=== PATIENT | male | born 1955 | race Caucasian/White ===

== ENCOUNTER 2018-09-26 15:42 | Inpatient (IN) ==
[2018-09-26 17:54] LABS: Basophils # 0.1 K/mcL (0.0-0.2); Basophils % 0.6 %; Eosinophils # 0.2 K/mcL (0.0-0.6); Eosinophils % 2.7 %; Hematocrit 45.8 % (37.5-50.1); Hemoglobin 15.2 g/dL (12.9-16.9); Immature Granulocytes % 0.3 % (0-4); Lymphocytes # 2.3 K/mcL (0.6-4.6); Lymphocytes % 26.2 %; Mean Corpuscular HGB Conc 33.2 g/dL (31.6-35.5); Mean Corpuscular Hemoglobin 29.7 pg (28.0-33.3); Mean Corpuscular Volume 89.6 fL (83.0-100.0); Monocytes % 11.4 %; Neutrophils # 5.1 K/mcL (1.6-8.9); Platelet Count 307 K/mcL (140-400); Red Blood Count 5.11 M/mcL (4.19-5.50); Red Cell Distribution Width 13.4 % (11.5-14.5); Segmented Neutrophils % 58.8 %
[2018-09-26 18:35] LABS: BUN/Creatinine Ratio 22 (6-26); Blood Urea Nitrogen 21 mg/dL (8-23); Calcium 9.2 mg/dL (8.6-10.3); Carbon Dioxide 22 mEq/L (23-29); Chloride 105 mEq/L (98-107); Glucose 98 mg/dL (70-105); Osmolality,Calculated 291 (280-300); Potassium 3.9 mEq/L (3.5-5.1); Sodium 139 mEq/L (136-145); eGFR For Non-African Americans > 60 (> 60)
--- NOTE | 2018-09-26 19:05 | Emergency Department Note ---
Disposition Clinical Impression: DVT (deep venous thrombosis) Qualifiers: DVT location: lower extremity Affected thrombotic vein of extremity: iliac Chronicity: acute Laterality: right Qualified Code(s): I82.421 - Acute embolism and thrombosis of right iliac vein Disposition: Admitted As Inpatient Condition: Good Time of Disposition: 20:20 General Adult HPI - General Chief complaint: ED Recheck/Abnormal Lab/Rx Stated complaint: Poss. DVT Time Seen by Provider: 09/26/18 18:32 Source: patient Limitations: no limitations Nursing Notes Reviewed: Yes Vital Signs Reviewed: Yes - History of Present Illness HPI Narrative: 63-year-old male presents with concern for DVT. Pt arrives from cardiovascular lab after a RLE DVT duplex study. Patient reports that he had some right lower extremity pain, he had been seen by his primary care provider approximately 3 days ago and was referred for DVT. Reportedly patient's primary care provider was contacted after this test and had advised to come to the emergency department. Patient does mention a history of DVT in the past in the past 10 years. Discussed with him, he mentions cause of this DVT was a "factor" this is a. Patient does mention that he has lower leg swelling, but he describes this as bilateral, and is currently taking Lasix for this, and tells me they just increased this. He describes being evaluated for this in the past. He denies any history of CHF kidney disease or liver disease. Patient reports that his medical translator had discontinued his anticoagulant use ago. Patient mentions his leg pain had improved approximate 2 days ago. Patient denies any chest pain, shortness of breath, hemoptysis, cough, syncope, fever, recent illness Pain Scale: 0 - Related Data Home Medications Medication Instructions Recorded Confirmed Losartan Potassium [Cozaar] 50 mg PO DAILY 09/26/18 09/26/18 Potassium Chloride [Klor-Con 10] 10 meq PO DAILY 09/26/18 09/26/18 RX: Allopurinol [Zyloprim 100 MG] 200 mg PO DAILY 09/26/18 09/26/18 RX: Aspirin 325 mg PO DAILY 09/26/18 09/26/18 RX: Furosemide [Lasix] 40 mg PO DAILY 09/26/18 09/26/18 RX: Simvastatin [Zocor] 40 mg PO QPM 09/26/18 09/26/18 RX: Sotalol [Betapace] 80 mg PO BID 09/26/18 09/26/18 Allergies Allergy/AdvReac Type Severity Reaction Status Date / Time No Known Allergies Allergy Verified 09/26/18 15:54 All systems ED: reviewed and negative except as stated. Review of Systems: As Per HPI Constitutional: Denies: fever, chills Eyes: Denies: eye pain ENT ED: Denies: throat pain Cardiovascular: Denies: chest pain, palpitations Respiratory: Denies: dyspnea Gastrointestinal: Denies: abdominal pain Genitourinary: Denies: dysuria Musculoskeletal: Denies: back pain Neurological: Denies: headache Endocrine: Denies: fatigue Hematological/Lymphatic: Denies: easy bleeding Past Medical History - Past Medical History Medical history: Reports: hyperlipidemia, hypertension, myocardial infarction Psychiatric history: Reports: no psych history - Social History Smoking Status: Never smoker Smokeless Tobacco Status: No Alcohol use: Reports: none Drug use: Reports: none Physical Exam - General Limitations: no limitations General appearance: alert, in no apparent distress - Head Head exam: atraumatic, normocephalic - Eye Eye exam: Present: EOMI. Absent: conjunctival injection - ENT ENT exam: normal oropharynx - Neck Neck exam: Present: normal inspection, full ROM. Absent: lymphadenopathy - Chest Chest inspection: Present: normal inspection, symmetric chest wall rise - Respiratory Respiratory exam: Present: normal lung sounds bilaterally. Absent: respiratory distress - Cardiovascular Cardiovascular exam: Present: regular rate, normal rhythm - Abdominal Exam Abdominal exam: Present: soft, Non-Tender - Extremities Exam Extremities exam: Present: full ROM, normal capillary refill - Expanded Lower Extremity Exam Hip/Pelvis exam: Present: full ROM Upper leg exam: Present: full ROM Knee exam: Present: full ROM. Absent: swelling Lower leg exam: Present: full ROM. Absent: tenderness, swelling, Homans' sign Ankle exam: Present: normal inspection, full ROM. Absent: tenderness, swelling Foot/toe exam: Present: normal inspection, full ROM. Absent: tenderness, swelling Neurovascular/Tendon exam: Present: normal capillary refill. Absent: pulse deficit, motor deficit, sensory deficit - Back Exam Back exam: Present: normal inspection, full ROM - Neurological Exam Neurological exam: Present: alert - Psychiatric Psychiatric exam: Present: normal affect, normal mood - Skin Skin exam: Present: warm, dry, intact, normal color. Absent: rash, cyanosis, diaphoresis Course Course Narrative: Pt has provided printout of the preliminary report of his RLE duplex. Vitals are wnl. Pt on exam. No unilateral leg swelling. No tenderness to right lower extremity. Results of this exam so partial occlusion that appears to be Q in the right distal iliac, and the right posterior tibial, and the right or lesser saphenous. Discussed with Dr. Rupali Ruiz who reviewed report, discussed with a patient and advised for admission. - Reevaluation(s) Reevaluation #1: Patient remained stable. lab Work unremarkable. Dr. Ruiz had ordered heparin. Patient was discussed with and accepted by hospitalist Dr. Posada Time: 20:19 Vital Signs Temperature 97.8 F 09/26/18 15:51 Pulse Rate 74 09/26/18 15:51 Respiratory Rate 18 09/26/18 15:51 Blood Pressure 127/82 09/26/18 15:51 O2 Sat by Pulse Oximetry 94 09/26/18 15:51 Temperature 97.5 F L 09/26/18 21:30 Pulse Rate 64 09/26/18 21:30 Respiratory Rate 16 09/26/18 21:30 Blood Pressure 157/91 09/26/18 21:30 O2 Sat by Pulse Oximetry 96 09/26/18 21:30 Oxygen Delivery Oxygen Delivery Room Air Medical Decision Making - [facility] Narrative Medical decision making narrative: Laboratory Tests 09/26/18 09/26/18 09/26/18 17:00 17:00 17:00 WBC 8.6 RBC 5.11 Hgb 15.2 Hct 45.8 MCV 89.6 MCH 29.7 MCHC 33.2 RDW 13.4 Plt Count 307 MPV 10.0 Immature Gran % 0.3 Seg Neutrophils % 58.8 Lymphocytes % 26.2 Monocytes % 11.4 Eosinophils % 2.7 Basophils % 0.6 Neutrophils # 5.1 Lymphocytes # 2.3 Monocytes # 1.0 Eosinophils # 0.2 Basophils # 0.1 PT 10.3 INR 0.9 APTT 34.2 Sodium 139 Potassium 3.9 Chloride 105 Carbon Dioxide 22 L BUN 21 Creatinine 0.96 Est GFR ( Amer) > 60 Est GFR (Non-Af Amer) > 60 BUN/Creatinine Ratio 22 Glucose 98 Calculated Osmolality 291 Calcium 9.2 - Lab Data Lab results reviewed: Yes I reviewed the patient's lab results. Result diagrams: 09/26/18 17:00 09/26/18 17:00 Lab Results 09/26/18 09/26/18 09/26/18 Range/Units 17:00 17:00 17:00 WBC 8.6 (4.3-11.1) K/mcL RBC 5.11 (4.19-5.50) M/mcL Hgb 15.2 (12.9-16.9) g/dL Hct 45.8 (37.5-50.1) % MCV 89.6 (83.0-100.0) fL MCH 29.7 (28.0-33.3) pg MCHC 33.2 (31.6-35.5) g/dL RDW 13.4 (11.5-14.5) % Plt Count 307 (140-400) K/mcL MPV 10.0 (9.4-12.4) fL Immature Gran % 0.3 (0-4) % Seg Neutrophils % 58.8 % Lymphocytes % 26.2 % Monocytes % 11.4 % Eosinophils % 2.7 % Basophils % 0.6 % Neutrophils # 5.1 (1.6-8.9) K/mcL Lymphocytes # 2.3 (0.6-4.6) K/mcL Monocytes # 1.0 (0.0-1.3) K/mcL Eosinophils # 0.2 (0.0-0.6) K/mcL Basophils # 0.1 (0.0-0.2) K/mcL PT 10.3 (9.4-12.1) Seconds INR 0.9 APTT 34.2 (26.0-36.0) Seconds Sodium 139 (136-145) mEq/L Potassium 3.9 (3.5-5.1) mEq/L Chloride 105 (98-107) mEq/L Carbon Dioxide 22 L (23-29) mEq/L BUN 21 (8-23) mg/dL Creatinine 0.96 (0.70-1.30) mg/dL Est GFR ( Amer) > 60 (> 60) Est GFR (Non-Af Amer) > 60 (> 60) BUN/Creatinine Ratio 22 (6-26) Glucose 98 (70-105) mg/dL Calculated Osmolality 291 (280-300) Calcium 9.2 (8.6-10.3) mg/dL
[2018-09-26 19:18] LABS: INR 0.9; Prothrombin Time 10.3 Seconds (9.4-12.1)
[2018-09-26 19:21] LABS: Activated Partial Thrombo Time 34.2 Seconds (26.0-36.0)
[2018-09-26] MEDS ORDERED: *HR* Heparin 5,000 UNIT/ML VIAL IVP ONE (19:29)
[2018-09-26] MEDS ORDERED: *HR* Heparin 5,000 UNIT/ML VIAL IVP PRN ×2 (19:29)
--- NOTE | 2018-09-26 19:32 | Emergency Department Note ---
Disposition Clinical Impression: DVT (deep venous thrombosis) Qualifiers: DVT location: lower extremity Affected thrombotic vein of extremity: iliac Chronicity: acute Laterality: right Qualified Code(s): I82.421 - Acute embolism and thrombosis of right iliac vein Disposition: Admitted As Inpatient Condition: Good Forms: ED Satisfaction Letter General Adult HPI - General Chief complaint: ED Recheck/Abnormal Lab/Rx Stated complaint: Poss. DVT Time Seen by Provider: 09/26/18 18:32 Source: patient Limitations: no limitations - History of Present Illness Pain Scale: 0 - Related Data Allergies Allergy/AdvReac Type Severity Reaction Status Date / Time No Known Allergies Allergy Verified 09/26/18 15:54 Constitutional: Denies: fever, chills Eyes: Denies: eye pain ENT ED: Denies: throat pain Cardiovascular: Denies: chest pain, palpitations Respiratory: Denies: dyspnea Gastrointestinal: Denies: abdominal pain Genitourinary: Denies: dysuria Musculoskeletal: Denies: back pain Neurological: Denies: headache Endocrine: Denies: fatigue Hematological/Lymphatic: Denies: easy bleeding Past Medical History - Past Medical History Medical history: Reports: hyperlipidemia, hypertension, myocardial infarction Psychiatric history: Reports: no psych history - Social History Smoking Status: Never smoker Smokeless Tobacco Status: No Alcohol use: Reports: none Drug use: Reports: none Physical Exam - General Limitations: no limitations General appearance: alert, in no apparent distress Course Vital Signs Temperature 97.8 F 09/26/18 15:51 Pulse Rate 74 09/26/18 15:51 Respiratory Rate 18 09/26/18 15:51 Blood Pressure 127/82 09/26/18 15:51 O2 Sat by Pulse Oximetry 94 09/26/18 15:51 Temperature 97.8 F 09/26/18 15:51 Pulse Rate 74 09/26/18 15:51 Respiratory Rate 18 09/26/18 15:51 Blood Pressure 127/82 09/26/18 15:51 O2 Sat by Pulse Oximetry 94 09/26/18 15:51 Oxygen Delivery Oxygen Delivery Room Air Medical Decision Making - Lab Data Result diagrams: 09/26/18 17:00 09/26/18 17:00 Lab Results 09/26/18 09/26/18 09/26/18 Range/Units 17:00 17:00 17:00 WBC 8.6 (4.3-11.1) K/mcL RBC 5.11 (4.19-5.50) M/mcL Hgb 15.2 (12.9-16.9) g/dL Hct 45.8 (37.5-50.1) % MCV 89.6 (83.0-100.0) fL MCH 29.7 (28.0-33.3) pg MCHC 33.2 (31.6-35.5) g/dL RDW 13.4 (11.5-14.5) % Plt Count 307 (140-400) K/mcL MPV 10.0 (9.4-12.4) fL Immature Gran % 0.3 (0-4) % Seg Neutrophils % 58.8 % Lymphocytes % 26.2 % Monocytes % 11.4 % Eosinophils % 2.7 % Basophils % 0.6 % Neutrophils # 5.1 (1.6-8.9) K/mcL Lymphocytes # 2.3 (0.6-4.6) K/mcL Monocytes # 1.0 (0.0-1.3) K/mcL Eosinophils # 0.2 (0.0-0.6) K/mcL Basophils # 0.1 (0.0-0.2) K/mcL PT 10.3 (9.4-12.1) Seconds INR 0.9 APTT 34.2 (26.0-36.0) Seconds Sodium 139 (136-145) mEq/L Potassium 3.9 (3.5-5.1) mEq/L Chloride 105 (98-107) mEq/L Carbon Dioxide 22 L (23-29) mEq/L BUN 21 (8-23) mg/dL Creatinine 0.96 (0.70-1.30) mg/dL Est GFR ( Amer) > 60 (> 60) Est GFR (Non-Af Amer) > 60 (> 60) BUN/Creatinine Ratio 22 (6-26) Glucose 98 (70-105) mg/dL Calculated Osmolality 291 (280-300) Calcium 9.2 (8.6-10.3) mg/dL Attestation Statement - Attestation Attestation: I examined this patient and my medical decision-making was reviewed with the PA. I agree with the documented findings, disposition and treatment plan as described except to the extent set forth below. 63 year old male presents to the ED with compaits of new found acute thrombosis in the right DVT in the distal iliac and sapphenous and popliteal. He has a hsitroy of DVTs and was recently taken off his coumadin therapy and has been experincing icnreased leg pain. Patinet will require admission to the hospital and heparin therapy.
[2018-09-26] MEDS: Heparin 25,000 UNIT/500 ML D5W 25,000 UNIT/500 ML BAG IVC SCH (19:50)
--- NOTE | 2018-09-26 21:35 | Internal Med History&Physical ---
<Abbey Beverly - Last Filed: 09/27/18 00:50> Date of Encounter: 09/27/18 Time of Encounter: 21:30 Internal Medicine - H&P: HPI Chief complaint: DVT right leg Admitted From: Home Plans for Post Hospital Care: Home History of present illness: Mr. Alvarado is a 63 year old male with past medical history of DVT, HTN, HLD, CA 2, pacemaker/defibrillator, gout presents to ED with concern for right lower extremity DVT. Patient saw his primary care provider about 3 days ago for right leg pain and the provider ordered a right lower extremity venous duplex. His right leg pain started 2 weeks ago and is located on the medial aspect of his calf; the area is approximately 2.5 cm in diameter and describes the pain as bruise-like. The pain does not radiate, it is made worse by bearing weight. He denies erythema or warmth of the right leg compared to the left. Denies associated chest pain, palpitations, irregular heartbeat, pleuritic chest pain, cough, dyspnea, syncope, or vision changes. No previous trauma or surgery to RLE, no prolonged periods of immobilization, no recent travel. Right lower extremity venous duplex performed at OSH revealed thrombus that included distal iliac, saphenous, and popliteal veins. Patient was reportedly contacted regarding his results and he was advised to go to the emergency department. Patient admits to previous DVT in the right leg with pulmonary embolism which occurred 6-7 years ago, he was treated at [facility] and discharged home on Coumadin. Patient thinks he was on Coumadin for a couple months, but is not certain. States his lumber inspector told him he no longer needed the Coumadin and instead could take a full dose of aspirin daily. Denies personal history of TIA/CVA, denies h/o cancer; family hx significant for clotting disorder due to "factor k" in patient's mother and sister. In the emergency department patient was found to be afebrile, heart rate 64, respiratory rate 16, blood pressure 157/91, SPO2 96% on room air. Labwork showed CBC, BMP, and PT/INR within normal limits. Per ED reports, patient had a printed copy of the preliminary RLE duplex results that showed acute thrombosis in distal iliac, sapphenous, and popliteal veins--his family took the report with them when they left for the night. Past Med Surg Social Fam HX - Past Medical History Medical history: hyperlipidemia, hypertension, myocardial infarction Psychiatric history: no psych history - Social History Smoking Status: Never smoker Smokeless Tobacco Status: No Alcohol use: none Drug use: none - Family History Father Living Status: Hx Family Cardiac Disorders: Yes Internal Medicine - H&P: Meds Allopurinol [Zyloprim 100 MG] 200 mg PO DAILY 09/26/18 [History] Aspirin 325 mg PO DAILY 09/26/18 [History] Furosemide [Lasix] 40 mg PO DAILY 09/26/18 [History] Losartan Potassium [Cozaar] 50 mg PO DAILY 09/26/18 [History] Potassium Chloride [Klor-Con 10] 10 meq PO DAILY 09/26/18 [History] Simvastatin [Zocor] 40 mg PO QPM 09/26/18 [History] Sotalol [Betapace] 80 mg PO BID 09/26/18 [History] Allergy/AdvReac Type Severity Reaction Status Date / Time No Known Allergies Allergy Verified 09/26/18 15:54 All Systems PM: A 10-system review of systems was performed and is negative for pertinent findings except as documented above in the HPI. - Constitutional Constitutional: no chills, no fever(s) - EENT Eyes: no change in vision - Cardiovascular Cardiovascular ROS IM: dyspnea on exertion (has improved since PCP increased furosemide dose), no chest pain, no diaphoresis, no irregular heart rhythm, no palpitations, no syncope - Respiratory Respiratory: no cough, no pain on inspiration, no pain with cough - Gastrointestinal Gastrointestinal: bloating (has improved since PCP increased furosemide dose), no abdominal pain, no constipation, no diarrhea, no nausea, no vomiting - Musculoskeletal Musculoskeletal ROS IM: other (RLE pain) Additional comments: denies erythema or warm of RLE compared to LLE - Integumentary Integumentary IM: no unusual bruising - Constitutional Vitals: Temp Pulse Resp BP Pulse Ox 97.8 F 68 16 126/74 98 09/26/18 15:51 09/26/18 20:17 09/26/18 20:17 09/26/18 20:17 09/26/18 20:17 Exam: General: vital signs noted, No acute distress, resting comfortably in bed HEENT: head normocephalic/atraumatic, EOMI, PERRL, sclera anicteric, moist mucus membranes Neck: Supple, demonstrates good ROM Cardio: RRR, no murmurs, +S1/S2 Pulm: CTAB, no wheezing, rhonchi, rales. Normal respiratory effort. Abdomen: soft, nontender, active bowel sounds; no rebound, rigidity, guarding, distention Extremities: appears RLE > LLE circumference, no cyanosis, no clubbing, pedal pu lses +2/4 bilaterally, no pitting edema Neuro: AAOx3, no focal deficit, no speech deficit, CN II-XII grossly intact, moves all extremities spontaneously Skin: clean, dry, intact, no visible rashes or bruises Psych: Appropriate mood and affect. Answers questions appropriately. Cooperative with exam Internal Med - H&P Results - Labs CBC & Chem 7: 09/26/18 17:00 09/26/18 17:00 Labs: Short CBC 09/26/18 Range/Units 17:00 WBC 8.6 (4.3-11.1) K/mcL Hgb 15.2 (12.9-16.9) g/dL Hct 45.8 (37.5-50.1) % Plt Count 307 (140-400) K/mcL Neutrophils # 5.1 (1.6-8.9) K/mcL BMP 09/26/18 17:00 Sodium 139 Potassium 3.9 Chloride 105 Carbon Dioxide 22 L BUN 21 Creatinine 0.96 Glucose 98 Calcium 9.2 - Assessment and plan (1) Deep vein thrombosis (DVT) of right lower extremity Current Visit: Yes Status: Acute Assessment and plan: Unprovoked, recurrent First occurrence (RLE DVT and PE) was 6-7 years ago, treated at [facility] and discharged home on coumadin Preliminary RLE duplex from OSH reported to show acute thrombosis in distal iliac, sapphenous, and popliteal veins Clinical exam not concerning for PE at this time (no tachycardia, tachypnea, decreased oxygen saturation, or hemodynamic instability), but continue to monitor Reports family history of clotting disorder of "factor k" Denies previous or current h/o cancer Heparin bolus and drip gtt started in ED Continue heparin gtt per protocol, monitor with heparin anti-Xa Request records from [facility] f/u with hematology--anticoagulation agent and duration recommendations, hypercoagulability work-up Suspect patient will require long-term, possibly lifetime, anticoagulation Monitor for signs of active bleeding Cardiac and pulse ox monitoring Qualifiers: Affected thrombotic vein of extremity: iliac Chronicity: acute Qualified Code(s): I82.421 - Acute embolism and thrombosis of right iliac vein (2) Hypertension Current Visit: Yes Status: Acute Assessment and plan: Continue home losartan, furosemide, and potassium chloride tablets Qualifiers: Hypertension type: unspecified Qualified Code(s): I10 - Essential (primary) hypertension (3) Hyperlipidemia Current Visit: Yes Status: Acute Assessment and plan: Continue home simvastatin Qualifiers: Hyperlipidemia type: unspecified Qualified Code(s): E78.5 - Hyperlipidemia, unspecified (4) CAD (coronary artery disease) Current Visit: Yes Status: Chronic Assessment and plan: Reports CA x2, most recent was early Qualifiers: Coronary Disease-Associated Artery/Lesion type: [place] artery [place] vs. transplanted heart: [place] heart Associated angina: with unspecified angina Qualified Code(s): I25.119 - Atherosclerotic heart disease of [place] coronary artery with unspecified angina pectoris (5) Presence of combination internal cardiac defibrillator (ICD) and pacemaker Current Visit: Yes Status: Acute Assessment and plan: Current pacemaker/defibrillator placed 2-3 years ago This is patient's second pacemaker/defibrillator--implanted for what sounds like symptomatic bradycardia? Requesting records from [facility] on telemetry (6) Former tobacco use Current Visit: Yes Status: Acute Assessment and plan: Quit in 1991 (7) DVT prophylaxis Current Visit: Yes Status: Acute Assessment and plan: Currently on heparin gtt, will continue - Time Spent With Patient Total time spent is greater than 50% in coordination of care (as documented) at patient's floor/unit and/or counseling patient: <Naseem Posada - Last Filed: 09/27/18 03:07> Date of Encounter: 09/27/18 Time of Encounter: 01:35 - Cardiovascular Cardiovascular ROS IM: dyspnea on exertion, no chest pain, no dyspnea - Respiratory Respiratory: no cough, no hemoptysis - Genitourinary Genitourinary ROS male: no dysuria, no flank pain - Constitutional Vitals: Temp Pulse Resp BP Pulse Ox 97.8 F 65 16 125/77 95 09/27/18 00:03 09/27/18 00:03 09/27/18 00:03 09/27/18 00:03 09/27/18 00:03 General appearance: Present: cooperative, A&O X 3, pleasant, no acute distress - Head Head exam: Present: normal inspection - Eye Eye exam: Present: PERRL. Absent: scleral icterus - ENT ENT exam: Present: mucous membranes dry, normal exam - Neck Neck exam general surgery: Present: full ROM, supple. Absent: tenderness, nuc nikia rigidity - Respiratory Respiratory exam: Present: CTAB. Absent: chest wall tenderness, rales, rhonchi, wheezes - Cardiovascular Cardiovascular exam: Present: RRR, +S1, +S2. Absent: diastolic murmur, systolic murmur - GI/Abdominal GI/Abdominal exam: Present: normal bowel sounds, soft. Absent: hepatomegaly, mass, splenomegaly, tenderness - Extremities Exam Extremities exam: Present: calf tenderness, normal capillary refill, tenderness (right thigh/calf), warm, radial pulses palpable and symmetrical. Absent: joint swelling, pedal edema - Back Exam Back exam: Absent: CVA tenderness (L), CVA tenderness (R) - Neurological Exam Neurological exam: Present: alert, CN II-XII intact, oriented X3, strengths equal and symetr throughout - Skin Skin exam: Present: dry, intact, warm Internal Med - H&P Results - Labs CBC & Chem 7: 09/26/18 17:00 09/26/18 17:00 Labs: Short CBC 09/26/18 Range/Units 17:00 WBC 8.6 (4.3-11.1) K/mcL Hgb 15.2 (12.9-16.9) g/dL Hct 45.8 (37.5-50.1) % Plt Count 307 (140-400) K/mcL Neutrophils # 5.1 (1.6-8.9) K/mcL BMP 09/26/18 17:00 Sodium 139 Potassium 3.9 Chloride 105 Carbon Dioxide 22 L BUN 21 Creatinine 0.96 Glucose 98 Calcium 9.2 - Time Spent With Patient Total time spent is greater than 50% in coordination of care (as documented) at patient's floor/unit and/or counseling patient: - Attending Attestation I discussed the patient [place], past medical history, review of systems, lab data, and exam findings with Dr. Devries. I then saw and examined and assessed patient independently as well. Patient reports prior history of DVT and PE (wh ich were unprovoked) roughly 6 or 7 years ago. He now has his third episode of VTE which was unprovoked. Given that history, I recommend long-term and possibly lifelong anticoagulation. Upon my assessment of the patient, he states he had a hypercoagulable workup done several years ago by hematology at [facility]. He does not recall the type of thrombophilia he suffers from. Given the proximal nature of his DVT and high risk for embolization, I agree with admission and heparin anti-coagulation for the time being. He will likely convert to oral anti-coagulation within 24 hours and possibly discharge home in 1 to 2 days. I do recommend outpatient follow-up with hematology for guidance regarding anticoagulation choice, duration, and further hypercoagulable testing if necessary. Furthermore, depending upon his hypercoagulable state, his children may need to be tested as well. I advised patient of my recommendations and he voiced understanding. Other than my comments above and noted exam findings, I agree with Dr. Devries's assessment and plan.
[2018-09-26] MEDS ORDERED: Naloxone 0.4 MG/ML INJ IVP PRN (21:37)
[2018-09-27 00:17] LABS: Heparin anti-factor XA UFH 1.59 IU/mL (0.30-0.70)
[2018-09-27 07:10] LABS: Basophils % 0.5 %; Eosinophils # 0.2 K/mcL (0.0-0.6); Eosinophils % 2.6 %; Hematocrit 42.3 % (37.5-50.1); Hemoglobin 13.9 g/dL (12.9-16.9); Immature Granulocytes % 0.4 % (0-4); Lymphocytes # 2.5 K/mcL (0.6-4.6); Lymphocytes % 30.1 %; Mean Corpuscular HGB Conc 32.9 g/dL (31.6-35.5); Mean Corpuscular Hemoglobin 29.8 pg (28.0-33.3); Mean Corpuscular Volume 90.8 fL (83.0-100.0); Mean Platelet Volume 10.2 fL (9.4-12.4); Monocytes # 0.8 K/mcL (0.0-1.3); Monocytes % 9.9 %; Neutrophils # 4.6 K/mcL (1.6-8.9); Platelet Count 274 K/mcL (140-400); Red Blood Count 4.66 M/mcL (4.19-5.50); Red Cell Distribution Width 13.4 % (11.5-14.5); Segmented Neutrophils % 56.5 %
[2018-09-27 07:29] LABS: Alanine Aminotransferase 18 Units/L (7-52); Albumin 3.8 g/dL (3.5-5.7); Albumin/Globulin Ratio 1.5 (1.1-2.2); Alkaline Phosphatase 102 Units/L (34-104); Aspartate Amino Transferase 18 Units/L (13-39); BUN/Creatinine Ratio 22 (6-26); Bilirubin,Total 0.3 mg/dL (0.3-1.0); Blood Urea Nitrogen 21 mg/dL (8-23); Calcium 8.8 mg/dL (8.6-10.3); Carbon Dioxide 24 mEq/L (23-29); Chloride 105 mEq/L (98-107); Globulin 2.5 g/dL (2.4-3.5); Glucose 96 mg/dL (70-105); Osmolality,Calculated 289 (280-300); Sodium 138 mEq/L (136-145); Total Protein 6.3 g/dL (6.4-8.9); eGFR For Non-African Americans > 60 (> 60)
[2018-09-27] MEDS: Furosemide 40 MG TABLET PO SCH (08:23)
[2018-09-27] MEDS: Heparin 25,000 UNIT/500 ML D5W 25,000 UNIT/500 ML BAG IVC SCH ×2 (10:10→23:25)
[2018-09-27] MEDS ORDERED: Acetaminophen 325 MG TABLET PO PRN (15:27)
--- NOTE | 2018-09-27 17:34 | Internal Med Progress Note ---
Hospitalist Progress Note - Encounter Date of Encounter: 09/27/18 Time of Encounter: 04:00 - Exam Vitals: Temp Pulse Resp BP Pulse Ox 98.0 F 65 16 112/78 92 09/27/18 16:23 09/27/18 16:23 09/27/18 16:23 09/27/18 16:23 09/27/18 16:23 Exam: General: vital signs noted, No acute distress, resting comfortably in bed ?Gen: Alert, awake, Oriented to time,place and person Chest: Diminished breath sounds B/L, No wheezing, No crackles, No rales Heart: S1S2+ RRR No murmurs Abd: Soft, NT, BS +, No organomegaly Ext: No edema, pulses are palpable, No calf tenderness Neuro : Benign findings Skin: No rash. - Assessment and Plan (1) Deep vein thrombosis (DVT) of right lower extremity Current Visit: Yes Status: Acute - Time Spent with Patient Total time spent is greater than 50% in coordination of care (as documented) at patient's floor/unit and/or counseling patient: (1) Deep vein thrombosis (DVT) of right lower extremity Current Visit: Yes Status: Acute Assessment and plan: Unprovoked, recurrent First occurrence (RLE DVT and PE) was 6-7 years ago, treated at [facility] and discharged home on coumadin Preliminary RLE duplex from OSH reported to show acute thrombosis in distal eron c, sapphenous, and popliteal veins Clinical exam not concerning for PE at this time (no tachycardia, tachypnea, decreased oxygen saturation, or hemodynamic instability), but continue to monitor Reports family history of clotting disorder of "factor k" Denies previous or current h/o cancer Heparin bolus and drip gtt started in ED Continue heparin gtt per protocol, monitor with heparin anti-Xa Request records from [facility] f/u with hematology--anticoagulation agent and duration recommen dations, hypercoagulability work-up Suspect patient will require long-term, possibly lifetime, anticoagulation Monitor for signs of active bleeding Cardiac and pulse ox monitoring 25 - 35 minutes Plan of Care Discussed with: patient Internal Medicine: Result - Labs CBC & Chem 7: 09/27/18 06:41 09/27/18 06:41 Labs: Short CBC 09/26/18 09/27/18 Range/Units 17:00 06:41 WBC 8.6 8.2 (4.3-11.1) K/mcL Hgb 15.2 13.9 (12.9-16.9) g/dL Hct 45.8 42.3 (37.5-50.1) % Plt Count 307 274 (140-400) K/mcL Neutrophils # 5.1 4.6 (1.6-8.9) K/mcL BMP 09/26/18 09/27/18 17:00 06:41 Sodium 139 138 Potassium 3.9 4.0 Chloride 105 105 Carbon Dioxide 22 L 24 BUN 21 21 Creatinine 0.96 0.96 Glucose 98 96 Calcium 9.2 8.8 Liver Function 09/27/18 Range/Units 06:41 Total Bilirubin 0.3 (0.3-1.0) mg/dL AST 18 (13-39) Units/L ALT 18 (7-52) Units/L Alkaline Phosphatase 102 (34-104) Units/L Albumin 3.8 (3.5-5.7) g/dL - ABG Interpretation ABG results: PT/INR, D-dimer PT 10.3 Seconds (9.4-12.1) 09/26/18 17:00 Consult Discharge Plan - Plan Referrals: Malika Bal [Primary Care Provider] - (1) Deep vein thrombosis (DVT) of right lower extremity Qualifiers: Affected thrombotic vein of extremity: iliac Chronicity: acute Qualified Code(s): I82.421 - Acute embolism and thrombosis of right iliac vein
[2018-09-28] MEDS: Furosemide 40 MG TABLET PO SCH (08:22)
[2018-09-28 11:24] VITALS: BP 111/74
--- NOTE | 2018-09-28 13:00 | Discharge Summary ---
Orders not resulted at time of discharge: Pending orders 09/28/18 23:08 Heparin anti-factor XA UFH [COAG] Timed follow up with PCP in 7 days Date of Encounter: 09/28/18 Time of Encounter: 12:57 - Discharge Diagnosis (1) Deep vein thrombosis (DVT) of right lower extremity Priority: Primary Status: Acute Qualifiers: Affected thrombotic vein of extremity: iliac Chronicity: acute Qualified Code(s): I82.421 - Acute embolism and thrombosis of right iliac vein Hospital course: Mr. 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 Patient saw his primary care provider about 3 days ago for ri ght leg pain and the provider ordered a right lower extremity venous duplex. His right leg pain started 2 weeks ago and is located on the medial aspect of his calf; the area is approximately 2.5 cm in diameter and describes the pain as bruise-like. The pain does not radiate, it is made worse by bearing weight. He denies erythema or warmth of the right leg compared to the left. Denies associated chest pain, palpitations, irregular heartbeat, pleuritic chest pain, cough, dyspnea, syncope, or vision changes. No previous trauma or surgery to E, no prolonged periods of immobilization, no recent travel. Right lower extremity venous duplex performed at OSH revealed thrombus that included distal iliac, saphenous, and popliteal veins. Patient was reportedly contacted regarding his results and he was advised to go to the emergency department. Patient admits to previous DVT in the right leg with pulmonary embolism which occurred 6-7 years ago, he was treated at [facility] and discharged home on Coumadin. Patient thinks he was on Coumadin for a couple months, but is not certain. States his color weigher told him he no longer needed the Coumadin and instead could take a full dose of aspirin daily. Denies personal history of TIA/CVA, denies h/o cancer; family hx significant for clotting disorder due to "factor k" in patient's mother and sister. In the emergency department patient was found to be afebrile, heart rate 64, respiratory rate 16, blood pressure 157/91, SPO2 96% on room air. Labwork showed CBC, BMP, and PT/INR within normal limits. Per ED reports, patient had a printed copy of the preliminary RLE duplex results that showed acute thrombosis in distal iliac, sapphenous, and popliteal veins Discharge discussed with: patient - Time Spent with Patient Total time spent providing and/or coordinating discharge services: greater than 30min Greater than 30 minutes - Discharge Medications Home Medications: Allopurinol [Zyloprim 100 MG] 200 mg PO DAILY 09/26/18 [History] Aspirin 325 mg PO DAILY 09/26/18 [History] Furosemide [Lasix] 40 mg PO DAILY 09/26/18 [History] Losartan Potassium [Cozaar] 50 mg PO DAILY 09/26/18 [History] Potassium Chloride [Klor-Con 10] 10 meq PO DAILY 09/26/18 [History] Simvastatin [Zocor] 40 mg PO QPM 09/26/18 [History] Sotalol [Betapace] 80 mg PO BID 09/26/18 [History] Allergies/Adverse Reactions: Allergy/AdvReac Type Severity Reaction Status Date / Time No Known Allergies Allergy Verified 09/26/18 15:54 Date of admission: 09/27/18 15:42 Primary care physician: Malika Bal - Constitutional Vitals: Temp Pulse Resp BP Pulse Ox 97.4 F L 61 16 111/74 95 09/28/18 11:21 09/28/18 11:21 09/28/18 11:21 09/28/18 11:21 09/28/18 11:21 General appearance: Present: cooperative, A&O X 3, pleasant, no acute distress Exam: General: vital signs noted, No acute distress, resting comfortably in bed ?Gen: Alert, awake, Oriented to time,place and person Chest: Diminished breath sounds B/L, No wheezing, No crackles, No rales Heart: S1S2+ RRR No murmurs Abd: Soft, NT, BS +, No organomegaly Ext: No edema, pulses are palpable, No calf tenderness Neuro : Benign findings Skin: No rash. - Patient Status Disposition: Home, Self-Care Condition: Good Overall status at discharge: patient is back to baseline - Discharge Instructions Follow Up With: Malika Bal [Primary Care Provider] - 10/09/18 11:20 am - Diet and Activity Activity: resume usual activities as tolerated
[2018-09-28] MEDS ORDERED: *HR* Rivaroxaban 15 MG TABLET PO SCH (14:00)
== END 2018-09-28 13:45 | disposition home or self-care (01) | DRG 301 ==
LOC: 3BNU 15:42 → EMEROOARM 15:42 → 3BNU 21:16
PROVIDERS: ADMIT Pediatrics; ATTEND Pediatrics

== ENCOUNTER 2022-04-20 22:00 | Observation (INO) ==
[2022-04-21] MEDS ORDERED: Ondansetron ODT 4 MG TAB.RAPDIS SL PRN (00:48)
[2022-04-21] MEDS ORDERED: *HR* OxyCODONE Immed Rel 5 MG TABLET PO PRN (00:48)
[2022-04-21] MEDS ORDERED: Melatonin 3 MG TABLET PO PRN (00:48)
[2022-04-21] MEDS ORDERED: Naloxone 0.4 MG/ML INJ IVP PRN (00:48)
[2022-04-21] MEDS ORDERED: Nitroglycerin 0.4 MG TAB.SUBL SL PRN (00:55)
[2022-04-21] MEDS: *HR* HYDROcodone/Acet 5/325 mg TABLET PO PRN ×2 (01:52→15:13)
[2022-04-21 03:44] LABS: Hematocrit 42.2 % (37.5-50.1); Hemoglobin 14.2 g/dL (12.9-16.9); Mean Corpuscular HGB Conc 33.6 g/dL (31.6-35.5); Mean Corpuscular Hemoglobin 30.5 pg (28.0-33.3); Mean Corpuscular Volume 90.8 fL (83.0-100.0); Mean Platelet Volume 10.6 fL (9.4-12.4); Platelet Count 198 K/mcL (140-400); Red Blood Count 4.65 M/mcL (4.19-5.50); Red Cell Distribution Width 14.4 % (11.5-14.5); White Blood Count 7.7 K/mcL (4.3-11.1)
[2022-04-21 04:09] LABS: BUN/Creatinine Ratio 24 (6-26); Blood Urea Nitrogen 28 mg/dL (8-23); Calcium 8.7 mg/dL (8.6-10.3); Carbon Dioxide 22 mEq/L (23-29); Chloride 108 mEq/L (98-107); Cholesterol 181 mg/dL (< 200); Glucose 85 mg/dL (70-105); HDL Cholesterol 61 mg/dL (40-59); LDL Cholesterol,Calculated 104 mg/dL (< 100); Magnesium 2.1 mg/dL (1.6-2.6); Osmolality,Calculated 293 (280-300); Phosphorous 3.5 mg/dL (2.7-4.5); Sodium 139 mEq/L (136-145); Triglycerides 80 mg/dL (< 150); eGFR For African Americans > 60 (> 60); eGFR For Non-African Americans > 60 (> 60)
[2022-04-21 04:21] LABS: Thyroid Stimulating Hormone 2.028 mcIU/mL (0.340-5.600)
[2022-04-21] MEDS ORDERED: Regadenoson 0.4 MG/5 ML SYRINGE IVP ONE (05:54)
[2022-04-21] MEDS ORDERED: Aspirin 81 MG TAB.CHEW PO SCH (09:00)
[2022-04-21 13:00] LABS: Estimated Average Glucose 114 mg/dl; Hemoglobin A1C 5.6 %
[2022-04-21] MEDS: Acetaminophen 325 MG TABLET PO PRN (15:13)
[2022-04-22 01:49] LABS: BUN/Creatinine Ratio 25 (6-26); Blood Urea Nitrogen 25 mg/dL (8-23); Calcium 8.5 mg/dL (8.6-10.3); Carbon Dioxide 22 mEq/L (23-29); Chloride 107 mEq/L (98-107); Glucose 94 mg/dL (70-105); Osmolality,Calculated 288 (280-300); Potassium 3.9 mEq/L (3.5-5.1); Sodium 137 mEq/L (136-145); eGFR For African Americans > 60 (> 60); eGFR For Non-African Americans > 60 (> 60)
[2022-04-22] MEDS: Acetaminophen 325 MG TABLET PO PRN ×2 (05:27→21:06)
[2022-04-22] MEDS: Aspirin Enteric Coated 81 MG Tablet PO SCH (10:12)
[2022-04-22] MEDS: Furosemide 40 MG TABLET PO SCH (10:12)
[2022-04-22] MEDS: *HR* HYDROcodone/Acet 5/325 mg TABLET PO PRN (10:12)
[2022-04-22] MEDS ORDERED: *HR* Midazolam HCl 2 MG/2 ML VIAL ONE (14:06)
[2022-04-22] MEDS ORDERED: *HR* FentaNYL (PF) 100 MCG/2 ML VIAL ONE (14:06)
[2022-04-22] MEDS ORDERED: Heparin 1,000 UNITS/500 mL 500 ML ONE (14:07)
[2022-04-22] MEDS ORDERED: *HR* Heparin 10,000 UNIT/10 ML VIAL ONE (14:07)
[2022-04-22] MEDS ORDERED: Nitroglycerin 1,000 MCG/5 ML VIAL IV ONE (14:07)
[2022-04-22] MEDS ORDERED: 0.9 % Sodium Chloride 1,000 ML ONE ×2 (14:07)
[2022-04-22] MEDS ORDERED: Iopamidol - 370 200 ML INFUS..BTL ONE (14:07)
[2022-04-22] MEDS ORDERED: Ondansetron 4 MG/2 ML VIAL ONE (14:15)
[2022-04-22] MEDS ORDERED: Tirofiban 12.5 MG/250ML 12.5 MG/250 ML BAG ONE (15:00)
[2022-04-23 03:35] LABS: Hematocrit 43.4 % (37.5-50.1); Hemoglobin 14.3 g/dL (12.9-16.9)
[2022-04-23 03:41] LABS: BUN/Creatinine Ratio 20 (6-26); Blood Urea Nitrogen 21 mg/dL (8-23); Calcium 8.7 mg/dL (8.6-10.3); Carbon Dioxide 26 mEq/L (23-29); Chloride 104 mEq/L (98-107); Glucose 100 mg/dL (70-105); Osmolality,Calculated 287 (280-300); Potassium 3.6 mEq/L (3.5-5.1); Sodium 137 mEq/L (136-145); eGFR For African Americans > 60 (> 60); eGFR For Non-African Americans > 60 (> 60)
[2022-04-23 07:18] VITALS: BP 118/81; PULSE 61; TEMP 97.5; O2SAT 93
[2022-04-23] MEDS: Furosemide 40 MG TABLET PO SCH (08:28)
[2022-04-23] MEDS: Aspirin Enteric Coated 81 MG Tablet PO SCH (08:28)
== END 2022-04-23 10:19 | disposition home or self-care (01) ==
LOC: 3BNU → SUATTDRO 04-21 00:19
PROVIDERS: ADMIT Internal Medicine; ATTEND Registered Nurse